=== PATIENT | male | born 1955 | race Caucasian/White ===

== ENCOUNTER 2016-08-08 12:31 | Day surgery (SDC) | payer BC ==
[2016-08-05 17:34] LABS: BASOPHILS 0.6 %; BASOPHILS ABSOLUTE 0.04 10/3/uL (0.0-0.16); EOSINOPHILS 3.9 %; EOSINOPHILS ABSOLUTE 0.28 10/3/uL (0.0-0.53); HEMATOCRIT 48.3 % (40.0-51.0); IMMATURE GRANULOCYTES 0.3 %; IMMATURE GRANULOCYTES ABSOLUTE 0.02 10/3/uL (0.0-0.11); LYMPHOCYTES 34.4 %; LYMPHOCYTES ABSOLUTE 2.45 10/3/uL (0.67-4.30); MEAN CORPUS HGB CONC 35.2 g/dL (32.0-36.0); MEAN CORPUSCULAR HEMOGLOB 31.3 pg (26.0-34.0); MEAN CORPUSCULAR VOLUME 88.8 fL (80-100); MEAN PLATELET VOLUME 10.8 fL (9.2-13.0); MONOCYTES 8.7 %; MONOCYTES ABSOLUTE 0.62 10/3/uL (0.21-1.20); NEUTROPHILS 52.1 %; NEUTROPHILS ABSOLUTE 3.71 10/3/uL (2.02-8.40); PLATELET COUNT 232 10/3/uL (150-400); RBC DISTRIBUTION WIDTH 12.8 % (12.0-16.0); RED CELL COUNT 5.44 10/6/uL (4.7-6.1); WHITE BLOOD CELLS 7.1 10/3/uL (4.5-10.5)
[2016-08-05 17:43] LABS: MANUAL DIFF NO %
[2016-08-05 17:50] LABS: BUN (BLOOD UREA NITROGEN) 13 MG/DL (6-23); CHLORIDE, SERUM 108 MMOL/L (96-112); CO2 (CARBON DIOXIDE) 29 MMOL/L (24-34); CREATININE 0.88 MG/DL (0.70-1.30); GFR AFRICAN AMERICAN 108 ML/MIN (>=60); GFR NON AFRICAN AMERICAN 93 ML/MIN (>=60); GLUCOSE, SERUM 91 MG/DL (60-99); POTASSIUM, SERUM 4.1 MMOL/L (3.5-5.3); SODIUM, SERUM 143 MMOL/L (135-148)
--- NOTE | ~2016-08-08 | OP ---
Record Of Operation [facility] [address] [place]. [address] NAME: WILLIE CHACON III : 55 STATUS : [facility] PAT#: [id number] AGE: 60 ADM/REG DATE : 08/08/16 MR#: [id number] REPORT SERV DATE: 08/09/16 DICTATED BY: JOHNNY MURGUIA III DATE: 08/08/16 REPORT STATUS : Draft TRANSCRIBED BY: MODL DATE: 08/08/16 DATE OF PROCEDURE: 08/08/2016 PROCEDURE: Left spermatocelectomy and transrectal biopsy of the prostate. PREOPERATIVE DIAGNOSES: 1. Abnormal digital exam with high-normal PSA. 2. A probable hydrocele. POSTOPERATIVE DIAGNOSES: 1. Abnormal digital exam with high-normal PSA. 2. A probable hydrocele. 3. Left complex spermatocele. ANESTHESIA: General. SURGEON: Johnny Murguia M.D. PROCEDURE IN DETAIL: With the patient in the supine position, prepped and draped in a sterile fashion. A horizontal incision was made over the left scrotum, and I tried to tease the hydrocele sac out, immediately I realized that this was most likely a large spermatocele with a very small hydrocele. We did eventually bring the sac out and opened a very small hydrocele, peeled this tissue away, and found a very complicated spermatocele. The epididymis was fully elevated off the testicle, the spermatocele was multi-septated, and there were a number of cysts that were adjacent to and were intertwined and into the vascular pedicle. I started the incision on the head of the penis taking care not to interfere with blood supply. I was able to lift the cyst at the level of the efferent ducts off the cephalic end on the testicle. I clamped what I felt were efferent ducts and tied them with 3-0 chromic. I then freed up all the cystic masses, one was removed intact, the rest would seem to be interconnected and were significantly adherent to the testicle on both sides and some small cysts adjacent to and adherent to the vascular pedicle. With tedious dissection, I was able to remove the vast majority of the spermatocele. There was a small amount left on the testicle, it was not in the area of the efferent ducts, and I opened this portion and fulgurated the lining. There was a lot of oozing from the scrotal otoole, the dartos musculature was grasped at the midpoint of the incision in the end, and then everted to get a better idea of the hemostasis. There were some bleeders that were fulgurated in the now very thickened muscle wall. A number of small bleeders were noted on the testicle and to some extent the cord. These were taken care of with small ligatures and light electrocautery. The testicle remained viable throughout. The extent of the wound was then thoroughly irrigated. There seem to be bleeding on the left lateral side of the scrotum, and we did find a bleeder in the muscle wall. This was fulgurated and clamped to be sewn in with the closure. A 25-gauge needle was used to put approximately 5 mL in the cord with 0.5% Marcaine without epinephrine. The testicle was then irrigated, no bleeding sites were noted. We then replaced the testicle, placed a [place] drain, secured it with a 3-0 chromic and a safety pin, and washed it for several minutes. There was no welling up of fluid at this point, so the wound was closed with a running 3-0 chromic on the dartos which was quite Record Of Operation [address] [place]. [address] NAME: CHACONWILLIE Nicholas CONTRERAS CAMPBELL : 55 STATUS : [facility]#: [id number] AGE: 60 ADM/REG DATE : 08/08/16 MR#: [id number] REPORT SERV DATE: 08/09/16 DICTATED BY: JOHNNY MURGUIA III DATE: 08/08/16 REPORT STATUS : Draft TRANSCRIBED BY: MODAngel DATE: 08/08/16 thick. Interrupted vertical mattress sutures were used on the skin to incorporate both the skin edge and the very thick-walled Dartos musculature. Hemostasis was obtained and Dermabond was placed on the incisions. The incision and the drain were then covered with bulky fluffs, he was turned on his left side, transverse longitudinal scanning was performed of the prostate, there was a median lobe protruding into the bladder somewhat, the volume was approximately 65 mL. There was one faint hypoechoic area in the right base which was biopsied x2, the other areas were unremarkable. Three biopsies were taken from the base and mid gland on both sides and 2 biopsies from the apex. We then removed the probe and drained the bladder. Meshed panties were placed on the patient, and he will be taken to the recovery room. ESTIMATED BLOOD LOSS: Approximately 5 mL. OB/MODL Johnny Murguia III, M.D. / [id number] CC: Kaushik Bauer III, Jr., M.D.
[~2016-08-08 12:31] MED LIST: FLOMAX4 PO
[2017-02-17] MEDS ORDERED: KAPIDEX60 MG PO (11:50)
== END 2016-08-08 20:16 | disposition home or self-care (01) ==
LOC: SDC 12:31
PROVIDERS: Urology
PROC: 0VBK0ZZ Excision of Left Epididymis, Open Approach (ICD-10-PCS; principal; 2016-08-08 13:15)
PROC: 0VB03ZX Excision of Prostate, Percutaneous Approach, Diagnostic (ICD-10-PCS; 2016-08-08 13:15)
DX: C61 Malignant neoplasm of prostate (principal); N43.40 Spermatocele of epididymis, unspecified; Z79.899 Other long term (current) drug therapy; Z98.890 Other specified postprocedural states
CPT/HCPCS: 76872; 76942; 80048; 85025; 88304; 88305; 88342; 93005; A9270-GY; J2250; J2370; J2405; J2710; J3010; P9045

== ENCOUNTER 2016-08-26 14:25 | Observation (INO) | payer BC ==
--- NOTE | ~2016-08-26 | OP ---
Record Of Operation [facility] [address] [place]. [address] NAME: WILILE CHACON III : 55 STATUS : ADM IN [facility]#: [id number] AGE: 60 ADM/REG DATE : 08/26/16 MR#: [id number] REPORT SERV DATE: 08/26/16 DICTATED BY: JOHNNY MURGUIA III DATE: 08/26/16 REPORT STATUS : Draft TRANSCRIBED BY: MODL DATE: 08/26/16 DATE OF PROCEDURE: 08/26/2016 PROCEDURE: I and D of scrotal abscess. PREOPERATIVE DIAGNOSIS: Scrotal abscess. POSTOPERATIVE DIAGNOSIS: Scrotal abscess. ANESTHESIA: General. DESCRIPTION OF PROCEDURE: Following induction of adequate general anesthesia, the wound was draining yellow thick fluid. We opened the incision and there was serous as well as what appeared to be purulent fluid in the scrotum. There was a peel of inflammatory tissue around the testicle, which was bluntly and sharply dissected off until we got to the tunica. Cultures were done for Gram stain, aerobic and anaerobic bacteria. The majority of the inflammatory peel was removed. I could get my fingers basically around the testicle. It was adherent inferiorly, probably to the gubernacular tissues, which bled when I began to cut them, so I cauterized this area. The cord was adherent to the back wall of the scrotum superiorly. All the pockets and the testicle were probed and thoroughly irrigated. We then put a Vac Pac on, and he will stay overnight at least to allow for healing. He did get a gram of vancomycin IV. OB/MODL Johnny Murguia III, M.D. / [id number] CC: Kaushik Bauer III, Jr., M.D.
[2016-08-26 15:01] LABS: BASOPHILS 0.6 %; BASOPHILS ABSOLUTE 0.07 10/3/uL (0.0-0.16); EOSINOPHILS 5.1 %; HEMATOCRIT 44.3 % (40.0-51.0); HEMOGLOBIN 15.3 g/dL (13.6-17.8); IMMATURE GRANULOCYTES 0.4 %; IMMATURE GRANULOCYTES ABSOLUTE 0.05 10/3/uL (0.0-0.11); LYMPHOCYTES ABSOLUTE 2.01 10/3/uL (0.67-4.30); MEAN CORPUS HGB CONC 34.5 g/dL (32.0-36.0); MEAN CORPUSCULAR HEMOGLOB 30.4 pg (26.0-34.0); MEAN CORPUSCULAR VOLUME 87.9 fL (80-100); MEAN PLATELET VOLUME 10.1 fL (9.2-13.0); MONOCYTES 7.8 %; MONOCYTES ABSOLUTE 0.92 10/3/uL (0.21-1.20); NEUTROPHILS 69.1 %; NEUTROPHILS ABSOLUTE 8.19 10/3/uL (2.02-8.40); RBC DISTRIBUTION WIDTH 12.4 % (12.0-16.0); RED CELL COUNT 5.04 10/6/uL (4.7-6.1)
[2016-08-26 15:02] LABS: MANUAL DIFF NO %; PLATELET COUNT 302 10/3/uL (150-400); WHITE BLOOD CELLS 11.8 10/3/uL (4.5-10.5)
[2016-08-27 06:34] LABS: BASOPHILS 0.1 %; BASOPHILS ABSOLUTE 0.01 10/3/uL (0.0-0.16); EOSINOPHILS 0.1 %; EOSINOPHILS ABSOLUTE 0.01 10/3/uL (0.0-0.53); HEMATOCRIT 43.3 % (40.0-51.0); IMMATURE GRANULOCYTES 0.4 %; IMMATURE GRANULOCYTES ABSOLUTE 0.04 10/3/uL (0.0-0.11); LYMPHOCYTES ABSOLUTE 1.02 10/3/uL (0.67-4.30); MEAN CORPUS HGB CONC 34.6 g/dL (32.0-36.0); MEAN CORPUSCULAR HEMOGLOB 30.7 pg (26.0-34.0); MEAN CORPUSCULAR VOLUME 88.7 fL (80-100); MEAN PLATELET VOLUME 10.1 fL (9.2-13.0); MONOCYTES 6.4 %; MONOCYTES ABSOLUTE 0.73 10/3/uL (0.21-1.20); NEUTROPHILS ABSOLUTE 9.51 10/3/uL (2.02-8.40); PLATELET COUNT 335 10/3/uL (150-400); RBC DISTRIBUTION WIDTH 12.2 % (12.0-16.0); RED CELL COUNT 4.88 10/6/uL (4.7-6.1); WHITE BLOOD CELLS 11.3 10/3/uL (4.5-10.5)
[2016-08-27 06:35] LABS: MANUAL DIFF NO %
[2016-08-28] MEDS ORDERED: NORCO1 TA2 PO (09:46)
[2016-08-28] MEDS ORDERED: BAC PO (09:46)
[2017-02-17] MEDS ORDERED: KAPIDEX60 MG PO (11:50)
== END 2016-08-28 16:16 | disposition home or self-care (01) ==
LOC: SDC 14:25 → 4SO 19:55
PROVIDERS: Urology
PROC: 0J9C0ZZ Drainage of Pelvic Region Subcutaneous Tissue and Fascia, Open Approach (ICD-10-PCS; principal; 2016-08-26 15:45)
DX: N49.2 Inflammatory disorders of scrotum (principal)
CPT/HCPCS: 71020; 85025; 87015; 87070; 87075; 87077; 87102; 87116; 87186; 87205; 96374; 96376; A9270-GY; G0378; J1170; J2250; J2405; J3010; J3370